=== PATIENT | female | born 1975 | race Caucasian/White ===

== ENCOUNTER 2021-07-24 13:11 | Outpatient (REF) | payer BC, SELFPAY ==
[2021-07-24 14:12] LABS: Blood Urea Nitrogen 13 mg/dL (9-16); Estimated Glomerular Filt Rate > 60
== END 2021-07-24 13:12 | disposition home or self-care (01) ==
LOC: HO.LAB 13:11
PROVIDERS: PCP Pediatrics; Visit Provider Psychiatry & Neurology Neurology
DX: I67.1 Cerebral aneurysm, nonruptured (principal)
CPT/HCPCS: 36415; 82565; 84520

== ENCOUNTER 2021-10-23 15:56 | Outpatient (REF) | payer BC, SELFPAY ==
[2021-10-23 18:15] LABS: Blood Urea Nitrogen 16 mg/dL (9-16); Estimated Glomerular Filt Rate > 60
== END 2021-10-23 15:57 | disposition home or self-care (01) ==
LOC: HO.LAB 15:56
PROVIDERS: PCP Pediatrics; Visit Provider Psychiatry & Neurology Neurology
DX: I67.1 Cerebral aneurysm, nonruptured (principal)
CPT/HCPCS: 36415; 82565; 84520

== ENCOUNTER 2021-10-29 07:49 | Outpatient (REF) | payer BC, SELFPAY ==
--- NOTE | ~2021-10-29 | CT_ITS ---
EXAMINATION: CT ANGIOGRAM BRAIN, HEAD WITH AND WITHOUT CONTRAST CLINICAL INFORMATION: 46-year-old with cerebral aneurysm. COMPARISON: None TECHNIQUE: Test bolus sequences followed by intravenous administration 75 mL of Omnipaque 350 intravenous contrast. Helical imaging was performed in the axial plane from the skull base to the vertex. Delayed postcontrast imaging of the head was also performed. The data was processed at the cytopathology technologist workstation for generation of MIP sequences. Three-dimensional volume rendered reformatted images were also generated at an offline 3-D workstation. The degree of stenosis determined by NASCET criteria. This CT examination was performed using dose optimization techniques as appropriate, variously including the following: *Automated exposure control. *Adjustment of mA and/or kV according to patient size (this includes techniques or standardized protocols for targeted exams where dose is matched to indication/reason for exam; i.e. extremities or head). *Use of iterative reconstruction technique. DLP: 2166 mGy-cm FINDINGS: CTA HEAD: Anterior Circulation: The visualized external and internal carotid arteries are patent and normal in caliber bilaterally with smooth contours. There is a origin of the right SOFTWARE BUSINESS ANALYST. The M1 segments are normal in caliber and patent bilaterally and smoothly contoured with a normal appearance to the MCA bifurcations and M2 branches. The A1 and A2 branches are patent and normal in caliber, with a normal appearance to the anterior communicating artery. Posterior Circulation: The visualized extradural vertebral arteries are patent with the left being slightly dominant and normal in caliber. The intradural vertebral arteries are patent with the left being dominant. The basilar artery is normal in caliber and patent. The superior cerebellar arteries are visualized bilaterally and are patent. There is a hypoplastic right P1 segment consistent with a origin of the right SOFTWARE BUSINESS ANALYST. The left [employer] BUSINESS A[employer]LYST is normal in caliber and configuration. Right [employer] BUSINESS ANALYST is patent and otherwise normal in caliber and configuration. No intracranial aneurysms or high flow vascular malformations are identified. There is opacification of the major dural venous sinuses. CT BRAIN: Pre-contrast and delayed postcontrast views of the brain demonstrate that the brain is normal in morphology and attenuation with normal moser-white differentiation. No extra-axial fluid collections, hemorrhage, intracranial mass lesion or abnormal enhancement, space-occupying process or mass effect is identified. The ventricular system and subarachnoid spaces are within normal limits without hydrocephalus. The calvarium appears intact. The mastoids and middle ear cavities are unopacified and the visualized paranasal sinuses are clear. The visualized orbital soft tissue structures and extracranial soft tissues are unremarkable. CT/CT angio head IMPRESSION: 1. Normal CT angiogram of the brain. No intracranial aneurysms are identified. 2. Normal CT of the brain without and with contrast.
[2021-10-29] MEDS: iohexoL 350 MG/ML 100 ML INFUS..BTL IV (08:56)
== END 2021-10-29 07:50 | disposition home or self-care (01) ==
LOC: HO.CT 07:49
PROVIDERS: PCP Pediatrics; Visit Provider Psychiatry & Neurology Neurology
DX: I67.1 Cerebral aneurysm, nonruptured (principal)
CPT/HCPCS: 70496; Q9967